=== PATIENT | male | born 1960 | race Caucasian/White ===

== ENCOUNTER 2016-04-02 09:11 | Emergency (ER) | payer OTHER ==
[~2016-04-02] VITALS: Ht 162.6 cm; Wt 75.0 kg
[~2016-04-02 09:11] MED LIST: LEVE-5 PO; LEVE500S9 PO; LEVO50TA71 PO; MAGN400T27 PO; SERT25TA PO; SODI1TAB2 PO
[2016-04-02 09:18] VITALS: Ht 162.6 cm; Wt 75.0 kg
[2016-04-02] MEDS ORDERED: LORAZEPAM 1 MG TAB PO ONE (09:30)
--- NOTE | 2016-04-02 09:45 | ERD ---
ER Documentation Chief Complaint Date/Time DATE: 04/02/16 TIME: 09:43 Chief Complaint Seizure with oral trauma bleeding of inner lip HPI This is a 55-year-old male. freelance interpreter/translator use. The patient has a history of brain injury now with seizure disorder on Keppra. The patient states that he regularly has breakthrough seizures. Just prior to arrival the patient had a generalized tonic-clonic seizure lasting less than 1 minute with spontaneous resolution. Accu-Chek in the field was normal. The patient has a small abrasion to the left lateral tongue. He denies any headache chest pain or shortness of breath, no recent fevers or chills. He states compliance with his medications. He regularly has breakthrough seizures approximately 1 every 1 or 2 weeks. ROS All systems reviewed and are negative except as per history of present illness. Medications Home Meds Reported Medications Levothyroxine Sodium* (Levoxyl*) 50 Mcg Tablet, 25 MCG PO BEFORE BREAKFAST, #30 TAB 05/20/15 Magnesium Oxide* (Mag-Oxide*) 400 Mg Tablet, 400 MG PO BID, TAB 05/20/15 Sodium Chloride* (Sodium Chloride*) 1 Gm Tablet, 1 GM PO BID, TAB 05/20/15 Sertraline Hcl* (Zoloft*) 25 Mg Tablet, 25 MG PO DAILY, #30 TAB 05/20/15 Levetiracetam* (Keppra*) 500 Mg Tablet, 500 MG PO BID, TAB 05/20/15 Discontinued Scripts Levetiracetam* (Keppra*) 500 Mg/5 Ml Solution, 500 MG PO BID, #60 BOTTLE Prov:ALBERTO CEDEÑO MD 05/20/15 Allergies Allergies: Coded Allergies: No Known Allergy (Unverified , 04/02/16) PMhx/Soc History of Surgery: Yes (craniotomy, tracheostomy) Anesthesia Reaction: No Hx Neurological Disorder: Yes (traumatic brain injury, seizures.) Hx Cardiac Disorders: No Hx Psychiatric Problems: No Hx Miscellaneous Medical Probl: No Hx Alcohol Use: No Hx Substance Use: No Hx Tobacco Use: No FmHx Family History: No diabetes Physical Exam Vitals Vital Signs Date Time Temp Pulse Resp B/P Pulse Ox O2 Delivery O2 Flow Rate FiO2 04/02/16 09:18 97.8 100 18 126/76 100 Physical Exam General: Well developed, well nourished, no acute distress Head: Normocephalic, atraumatic. Eyes: Pupils equally reactive, EOM intact ENT: Moist mucous membranes, small abrasion noted to the left lateral aspect of the tongue, no active bleeding. Tolerating secretions. Neck: Supple, no lymphadenopathy Respiratory: Lungs clear bilaterally, no distress Cardiovascular: RRR, no murmurs, rubs, or gallops Abdominal: Soft, non-tender, non-distended, no peritoneal signs : Deferred MSK: No edema, no unilateral swelling, 5/5 strength Neurologic: Alert and oriented though slightly postictal, moving all extremities , normal speech, no focal weakness, no cerebellar signs Skin: No rash Psych: Normal mood Results 24 hrs Current Medications Medications (Trade) Dose Ordered Sig/Sujatha Route PRN Reason Start Time Stop Time Status Last Admin Dose Admin Lorazepam (Ativan) 1 mg ONCE ONCE PO 04/02/16 09:30 04/02/16 09:31 DC 04/02/16 09:23 Procedures/MDM The patient has had a breakthrough seizure which appears to be consistent with regular breakthrough seizures for this patient. He states compliance to medication regimen. The patient takes Keppra, I cannot check a Keppra level in house. The patient's Accu-Chek in the field was normal. He has returned to baseline though he was slightly postictal upon arrival. The patient does have an abrasion to his tongue that does not require laceration repair. It is hemostatic. He has no signs or symptoms concerning for increased intracranial process. No evidence of meningitis. The patient was given 1 mg of p.o. Ativan and continues to be well-appearing, returned to baseline, ambulatory. His child support case officer is here and the patient can be discharged back to his assisted living facility. Of note the patient does not follow up with a neurologist. He states that his primary care manages his medications. I would recommend outpatient neurology follow-up. The patient was advised. We discussed follow up with the patient's primary care doctor within 24 to 48 hours as needed. We also discussed return to the emergency room for worsening symptoms or worsening condition. Discharge Medications: None required Departure Diagnosis: Primary Impression: Breakthrough seizure Additional Impressions: Seizure disorder Abrasion of tongue Encounter type: initial encounter Qualified Code: S00.512A - Abrasion of tongue, initial encounter Condition: Stable Patient Instructions: Seizure, Recurrent [Adult] Referrals: [facility] () Usted se perdue hecho un examen mdico de control que le indica que no est en danni condicin que requiera tratamiento urgente en el Departamento de Emergencia. Un estudio ms profundo y el tratamiento de gracia condicin pueden esperar sin ningn riesgo hasta que usted sea atendida/o en el consultorio de gracia mdico o danni cl jessica. Es responsabilidad suya arreglar danni pramod para el seguimiento del solomon. MANEJO DE CONDICIONES NO URGENTES EN EL FUTURO 1) Si usted tiene un mdico de atencin primaria: Usted debera llamar a gracia mdico de atencin primaria antes de venir al departamento de emergencia. Despus de las horas de consultorio, gracia doctor o gracia asociado/a est disponible por telfono. El mdico o enfermero de jamie en el servicio telefnico puede asesorarle por rochelle medio para atender el problema, o solomon contrario se puede programar danni pramod. 2) Si usted no tiene un mdico de atencin primaria: Llame al mdico o clnica de referencia que aparece abajo michell las horas de consultorio para hacer danni pramod para que le vean. CLINICAS: [facility] [phone] [id number] [facility] [phone] [facility] [phone] [facility] [phone] [facility] [phone] [address] [facility]. [phone] [address] [facility] () Usted se perdue hecho un examen mdico de control que le indica que no est en danni condicin que requiera tratamiento urgente en el Departamento de Emergencia. Un estudio ms profundo y el tratamiento de gracia condicin pueden esperar sin ningn riesgo hasta que usted sea atendida/o en el consultorio de gracia mdico o danni cl jessica. Es responsabilidad suya arreglar danni pramod para el seguimiento del solomon. MANEJO DE CONDICIONES NO URGENTES EN EL FUTURO 1) Si usted tiene un mdico de atencin primaria: Usted debera llamar a gracia mdico de atencin primaria antes de venir al departamento de emergencia. Despus de las horas de consultorio, gracia doctor o gracia asociado/a est disponible por telfono. El mdico o enfermero de jamie en el servicio telefnico puede asesorarle por rochelle medio para atender el problema, o solomon contrario se puede programar danni pramod. 2) Si usted no tiene un mdico de atencin primaria: Llame al mdico o condado institucions de referencia que aparece abajo michell las horas de consultorio para hacer danni pramod para que le vean. SI USTED NO PUEDE PAGAR PARA RIO UN MEDICO puede ir a: [facility] [id number] [place] [address] [facility] [address] [place] [address] [facility] [address] [place] [address] [facility] [address], [place] [phone] Additional Instructions: Llame al doctor nombrado abajo (Referral Sources) MAANA y diallo danni PRAMOD PARA DENTRO DE DANNI SEMANA. Dgale a la secretaria que nosotros le instruimos hacer esta pramod.Avise o llame si gracia condicin se empeora antes de la pramod. NORA CHAO MD Apr 02, 2016 09:45
[2016-04-02 10:28] VITALS: BP 126/83; PULSE 84; RESP 17; TEMP 98.4
== END 2016-04-02 10:32 | disposition home or self-care (01) ==
LOC: E/R 09:11
DX: G40.909 Epilepsy, unspecified, not intractable, without status epilepticus (principal); S00.512A Abrasion of oral cavity, initial encounter; X58.XXXA Exposure to other specified factors, initial encounter; Y92.9 Unspecified place or not applicable
CPT/HCPCS: 99283